=== PATIENT | male | born 2005 | race Caucasian/White ===

== ENCOUNTER 2023-06-08 15:04 | Inpatient (IN) | payer MEDICAID ==
[~2023-06-08] VITALS: Ht 182.9 cm; Wt 67.2 kg
[2023-06-08] MEDS ORDERED: HALOPERIDOL 5 MG TABLET PO PRN (20:30)
[2023-06-08] MEDS: LORazepam 2 MG TABLET PO PRN (20:59)
[2023-06-08 22:08] VITALS: BP 133/82; PULSE 71; RESP 17; TEMP 97.8; O2SAT 98
[2023-06-08 23:10] VITALS: TEMP 97.8
[2023-06-09] MEDS ORDERED: INFLUENZA VIRUS VACCINE QVS 2023-24 (6MO+)/PF 60 MCG/0.5 ML SYRINGE IM. ONE (03:30)
[2023-06-09] MEDS ORDERED: PETROLATUM,WHITE 28 GM JELLY TP PRN (07:45)
[2023-06-09] MEDS ORDERED: MAG HYDROX/ALUMINUM HYD/SIMETH ES 30 ML SUSPENSION UDCUP PO PRN (07:45)
[2023-06-09] MEDS ORDERED: ALBUTEROL SULFATE HFA 90 MCG/PUFF 8 GM INHALER IH PRN (07:45)
[2023-06-09] MEDS ORDERED: MAGNESIUM HYDROXIDE SUSPENSION 30 ML UDCUP PO PRN (07:45)
[2023-06-09] MEDS ORDERED: CloNIDine HCL 0.1 MG TABLET PO PRN (07:45)
[2023-06-09] MEDS ORDERED: ACETAMINOPHEN 325 MG TABLET PO PRN (07:45)
[2023-06-09] MEDS ORDERED: GuaiFENesin/D-METHORPHAN [SUGAR-FREE] 200-20MG/10 ML SYRUP UDCUP PO PRN (07:45)
[2023-06-09] MEDS ORDERED: DOCUSATE SODIUM 100 MG CAPSULE PO PRN (07:45)
[2023-06-09] MEDS ORDERED: LOPERAMIDE HCL 2 MG CAPSULE PO PRN (07:45)
[2023-06-09] MEDS ORDERED: IBUPROFEN 400 MG TABLET PO PRN (07:45)
[2023-06-09] MEDS ORDERED: ONDANSETRON HCL 4 MG TABLET PO PRN (07:45)
[2023-06-09 07:46] LABS: EOSINOPHILS % (AUTO) 9.9 % (1.0-6.0); HEMOGLOBIN 13.5 g/dL (13.5-17.5); LYMPHOCYTES # (AUTO) 2.3 K/uL (1.0-4.8); LYMPHOCYTES % (AUTO) 35.9 % (22.0-44.0); MEAN CORPUSCULAR HEMOGLOBIN 28.9 pg (26.0-34.0); MEAN CORPUSCULAR HGB CONC 34.6 G/dL (31.0-37.0); MEAN CORPUSCULAR VOLUME 84 fL (80-100); MONOCYTES # (AUTO) 0.8 K/uL (0.1-1.0); MONOCYTES % (AUTO) 12.4 % (2.0-9.0); NEUTROPHILS # (AUTO) 2.6 K/uL (1.8-7.7); NEUTROPHILS % (AUTO) 40.8 % (40.0-70.0); PLATELET COUNT (AUTO) 255 K/uL (150-450); RED BLOOD CELL COUNT(AUTO) 4.65 MIL/uL (4.50-5.90); RED CELL DISTRIBUTION WIDTH 14.6 % (11.5-14.5); WHITE BLOOD COUNT (AUTO) 6.3 K/uL (4.5-11.0)
[2023-06-09 07:54] LABS: HEMOGLOBIN A1C 5.4 % (3.8-5.6)
[2023-06-09 08:12] LABS: ALANINE AMINOTRANSFERASE 14 U/L (12-78); ALBUMIN 3.5 g/dL (3.4-5.0); ALKALINE PHOSPHATASE 68 U/L (46-116); ANION GAP 6 mmol/L (8-16); ASPARTATE AMINOTRANSFERASE 12 U/L (15-37); BILIRUBIN,TOTAL 0.4 mg/dL (0.1-1.0); CALCIUM, TOTAL 8.8 mg/dL (8.8-10.5); CARBON DIOXIDE 29 mmol/L (22-29); CHLORIDE 108 mmol/L (98-107); CHOL/HDL RATIO 1.8 (4.2-7.3); CHOLESTEROL 102 mg/dL (131-200); CREATININE 0.89 mg/dL (0.60-1.30); FREE T4 (FREE THYROXINE) 0.98 ng/dL (0.76-1.46); GLOMERULAR FILTR. RATE CALC > 60 mL/min (>60); GLUCOSE,RANDOM 88 mg/dL (70-110); HDL CHOLESTEROL 58 mg/dL (40-60); LDL CHOL (CALC.) 30 mg/dL (0-130); POTASSIUM 4.3 mmol/L (3.5-5.1); SODIUM SERUM 143 mmol/L (136-145); THYROID STIMULATING HORMONE 1.53 uIU/mL (0.36-3.74); TOTAL PROTEIN, SERUM 6.2 g/dL (6.4-8.2); TRIGLYCERIDES 70 mg/dL (15-150); UREA NITROGEN, BLOOD 12 mg/dL (7-18)
[2023-06-09] MEDS: SERTRALINE HCL 50 MG TABLET PO SCH (10:17)
[2023-06-09 12:00] VITALS: BP 124/78; PULSE 72; RESP 16; TEMP 97.6; O2SAT 98
[2023-06-09] MEDS: LORazepam 2 MG TABLET PO PRN ×2 (12:13→16:34)
[2023-06-09] MEDS: NICOTINE 14 MG/24 HOUR PATCH TD PRN (16:09)
[2023-06-09] MEDS: ZOLPIDEM TARTRATE 10 MG TABLET PO PRN (20:11)
[2023-06-10 00:36] VITALS: BP 135/80; PULSE 99; RESP 18; TEMP 98; O2SAT 98
[2023-06-10] MEDS: SERTRALINE HCL 50 MG TABLET PO SCH (08:14)
[2023-06-10] MEDS: NICOTINE 14 MG/24 HOUR PATCH TD PRN (09:23)
[2023-06-10] MEDS: LORazepam 2 MG TABLET PO PRN ×3 (09:24→17:42)
[2023-06-10 10:24] VITALS: BP 140/78; PULSE 90; RESP 16; TEMP 97.8; O2SAT 99
[2023-06-10] MEDS: ZOLPIDEM TARTRATE 10 MG TABLET PO PRN (19:53)
[2023-06-10 20:24] VITALS: BP 132/75; PULSE 87; RESP 18; TEMP 97.6; O2SAT 98
[2023-06-11] MEDS: SERTRALINE HCL 50 MG TABLET PO SCH (08:16)
[2023-06-11 08:28] VITALS: BP 111/81; PULSE 100; RESP 17; TEMP 98; O2SAT 99
[2023-06-11 08:32] LABS: THYROID STIMULATING HORMONE 1.7 uIU/mL (0.36-3.74)
[2023-06-11 08:41] LABS: HEMOGLOBIN A1C 5.3 % (3.8-5.6)
[2023-06-11] MEDS ORDERED: SERT-439 PO (09:31)
== END 2023-06-11 14:30 | disposition home or self-care (01) | DRG 751 ==
LOC: B2S 20:29
PROVIDERS: ADMIT Psychiatry & Neurology Psychiatry; ATTEND Psychiatry & Neurology Psychiatry
PROC: GZHZZZZ Group Psychotherapy (ICD-10-PCS; principal; 2023-06-09)
DX: F33.2 Major depressive disorder, recurrent severe without psychotic features (principal); R45.851 Suicidal ideations; F12.90 Cannabis use, unspecified, uncomplicated; F14.90 Cocaine use, unspecified, uncomplicated; G47.00 Insomnia, unspecified; F41.9 Anxiety disorder, unspecified; Z79.899 Other long term (current) drug therapy; Z91.51 Personal history of suicidal behavior
CPT/HCPCS: 80053; 80061; 83036; 84439; 84443; 85025